=== PATIENT | female | born 1955 | race Caucasian/White ===

== ENCOUNTER 2016-10-30 12:46 | Outpatient (CLI) ==
--- NOTE | 2016-11-01 08:36 | MAMMO ---
EXAM: Bilateral digital screening mammogram History: Screening Comparison: Bilateral mammogram 10/06/2015 Findings: MLO and CC views of bilateral breasts demonstrate scattered fibroglandular breast parench yma. Stable benign bilateral breast calcifications. There are no dominant masses, no suspicious mi crocalcifications and no architectural distortions Impression: Benign stable mammogram. Recommend followup routine screening mammography in 1 year. BIRADS 2
== END 2016-10-30 12:47 | disposition home or self-care (01) ==
LOC: RAD 12:46
PROVIDERS: ATTEND Family Medicine
DX: Z12.31 Encounter for screening mammogram for malignant neoplasm of breast (principal)
CPT/HCPCS: 77067

== ENCOUNTER 2017-12-25 09:47 | Outpatient (CLI) ==
--- NOTE | 2017-12-25 11:37 | DEXA ---
EXAM: Bone densitometry. History: Postmenopausal. Findings: Evaluation of the lumbar spine reveals a total bone mineral density of 1.203 grams per centimeter squ ared with T-score of 0.2. Evaluation of the left hip reveals a total bone mineral density of 0.880 grams per centimeter squared with T-score of negative 1.0. Evaluation of the right hip reveals a total bone mineral density of 0.820 grams per centimeter square d with T-score of negative 1.5 Impression: 1. Normal bone mineral density of the lumbar spine. 2. Normal bone mineral density of the left hip. 3. Osteopenia of the right hip
--- NOTE | 2017-12-26 09:59 | MAMMO ---
EXAM: Bilateral digital screening mammogram (2-D and 3-D) History: Screening Comparison: Bilateral mammogram 10/30/2016 Findings: MLO and CC views of bilateral breasts demonstrate scattered fibroglandular breast parenchym a. CAD was reviewed by the radiologist. Tomosynthesis was performed. Stable benign bilateral breas t calcifications. There are no dominant masses, no suspicious microcalcifications and no architectur al distortions Impression: Benign stable mammogram. Recommend followup routine screening mammography in 1 year. BIRADS 2
== END 2017-12-25 09:48 | disposition home or self-care (01) ==
LOC: RAD 09:47
PROVIDERS: ATTEND Family Medicine
DX: Z12.31 Encounter for screening mammogram for malignant neoplasm of breast (principal); Z78.0 Asymptomatic menopausal state; Z13.820 Encounter for screening for osteoporosis
CPT/HCPCS: 77067